=== PATIENT | male | born 1970 | race Caucasian/White ===

== ENCOUNTER 2016-08-23 14:42 | Emergency (ER) | payer MEDICARE ==
[2016-08-23 15:32] LABS: HEMOGLOBIN 13.7 gm/dl (14.0-17.5); RED BLOOD COUNT 4.48 M/UL (4.20-5.50); WHITE BLOOD COUNT 12.1 K/UL (4.5-11.0)
[2016-08-23 15:53] LABS: BUN/CREATININE RATIO 11 (0-10)
== END 2016-08-23 18:52 | disposition home or self-care (01) ==
LOC: ER1 14:42
PROVIDERS: Nurse Practitioner Family
DX: K59.00 Constipation, unspecified (principal); I48.91 Unspecified atrial fibrillation; Z90.49 Acquired absence of other specified parts of digestive tract; Z95.0 Presence of cardiac pacemaker; Z79.82 Long term (current) use of aspirin; Z79.899 Other long term (current) drug therapy
CPT/HCPCS: 36415; 80053; 81001; 82150; 83690; 85025; 87086; 96361; 96374; 96375; 99284; J2270; J2405

== ENCOUNTER → 2021-01-09 | Outpatient (CLI) | payer BC, MEDICARE ==
[~2021-01-09] MED LIST: COLACE 100MG C100 MG PO; HYDROCODON-ACE1 EAC4 PO; LORTAB 7.5-3251 EACH PO; MILK OF MA400 MG/5 M PO; NEURONTIN600 MG PO
== END ==
LOC: KOH-I 11:30
DX: M79.661 Pain in right lower leg (principal)
CPT/HCPCS: 93971